=== PATIENT | male | born 1965 ===

== ENCOUNTER 2020-02-25 14:03 | Outpatient (REF) | payer OTHER, SELFPAY | END 2020-02-25 14:04 | disposition home or self-care (01) | LOC: HO.HAP 14:03 | PROVIDERS: PCP Internal Medicine; Visit Provider Internal Medicine | DX: Z46.1 Encounter for fitting and adjustment of hearing aid (principal) | CPT/HCPCS: 92700 ==

== ENCOUNTER 2020-09-16 15:05 | Outpatient (REF) | payer OTHER, SELFPAY | END 2020-09-16 15:06 | disposition home or self-care (01) | LOC: HO.HAP 15:05 | PROVIDERS: Visit Provider Internal Medicine | DX: Z13.89 Encounter for screening for other disorder (principal) ==

== ENCOUNTER 2020-09-28 10:08 | Outpatient (REF) | payer OTHER, SELFPAY | END 2020-09-28 10:09 | disposition home or self-care (01) | LOC: HO.HAP 10:08 | PROVIDERS: Visit Provider Internal Medicine | DX: Z13.89 Encounter for screening for other disorder (principal) ==